=== PATIENT | female | born 1990 | race Caucasian/White ===

== ENCOUNTER 2017-03-29 11:11 | Inpatient (IN) | payer OTHER ==
[~2017-03-29] VITALS: Ht 167.6 cm; Wt 52.2 kg
[~2017-03-29 11:11] MED LIST: CHOL10002 PO; ESCI10TA PO; HYDR-3895 PO; LACT1CAP57 PO; NITR100C11 PO; PRAZ1CAP2 PO; TRAZ-144 PO
--- NOTE | 2017-03-29 12:45 | NUR ---
Intake Assessment; Patient is a 26 year old female AOX4, presented to [facility] to detoxify from ETOH. Patient was picked up from [facility]. She is the primary source of information. Patient is reporting anxiety, chills, fatigue, fine tremors of hands, difficulty concentrating. Admitting vital signs are as follows; BP 114/82, Respirations 18, HR 90, SPO2 96%, Temperature 96.8 , complaining of right hand pain rated 4/10 . Educated patient regarding unit protocols and policies, patient verbalized understanding. Patient was recently a patient at [facility] from November 11, 2016 and was discharged on November 17, 2016. Will continue with further assessment when patient is up on the unit.
[2017-03-29] MEDS ORDERED: HYDROXYZINE PAMOATE 25 MG CAPSULE PO PRN (13:15)
[2017-03-29] MEDS ORDERED: DICYCLOMINE HCL 20 MG TABLET PO PRN (13:15)
[2017-03-29] MEDS ORDERED: diphenhydrAMINE 50 MG CAPSULE PO PRN (13:15)
[2017-03-29] MEDS ORDERED: LORAZEPAM 1 MG TABLET PO PRN ×2 (13:15)
[2017-03-29] MEDS ORDERED: LOPERAMIDE HCL 2 MG CAPSULE PO PRN ×2 (13:15)
[2017-03-29] MEDS ORDERED: MAGNESIUM HYDROXIDE 30 ML LIQUID UDC PO PRN (13:15)
[2017-03-29] MEDS ORDERED: MAG HYDROX/AL HYDROX/SIMETH 30 ML LIQUID UDC PO PRN (13:15)
[2017-03-29] MEDS ORDERED: ONDANSETRON 4 MG/2 ML VIAL IM PRN (13:15)
[2017-03-29] MEDS ORDERED: THIAMINE HCL 200 MG/2 ML VIAL IM ONE (13:15)
[2017-03-29] MEDS ORDERED: ONDANSETRON ODT 4 MG TAB.RAPDIS SL PRN (13:15)
[2017-03-29] MEDS ORDERED: MIRALAX 17 GM POWD.PACK PO PRN (13:15)
[2017-03-29] MEDS ORDERED: LORAZEPAM 2 MG/1 ML VIAL IM PRN (13:15)
--- NOTE | 2017-03-29 13:33 | NUR ---
Admission note; Patient is a 26 year old female AOX4, presented to [facility] to detoxify from ETOH. Patient was picked up from [facility]. She is the primary source of information. Patient is reporting anxiety, chills, fatigue, fine tremors of hands, nausea, difficulty concentrating, unable to sit still with current CIWA score of 11. Admitting vital signs are as follows; BP 114/82, Respirations 18, HR 90, SPO2 96%, Temperature 96.8 , complaining of right hand pain rated 4/10 and muscle aches on right side of rib area .Educated patient regarding unit protocols and policies, patient verbalized understanding. Discussed substance use history. Patient was recently a patient at [facility] from October and was discharged on November 17, 2016 and was able to remain sober until she relapsed last week. She reports consuming 1 liter of Vodka/Tequila on a daily basis, last consumed 2 days ago, consumed 1 liter of Vodka. She reports self medicating with alcohol to manage her symptoms of anxiety. Patient first started drinking alcohol when at age of 11 and progressed to daily consumption when she turned 16 years old. She denies history of seizures. Patient struggled with multiple attempts to sobriety. Her longest period of sobriety was 2 years that ended in January 2015. Discussed medical and psych history. Patient reported history of anxiety, Chronic tobacco use, history of Cocaine use disorder. Patient currently lives with her family. Skin check done with no significant findings. Dr. Ponce notified. Patient oriented to unit by [employer]. Safety measures in place. Will continue to monitor patient. Addendum: 03/29/17 at 1552 by MARGARETH CORTEZ LVN Patient's PCP is Dr. Lewis.
[2017-03-29 13:39] LABS: *AMPHETAMINE, URINE NEGATIVE (NEGATIVE); *BARBITURATE, URINE NEGATIVE (NEGATIVE); *CANNABINOID, URINE NEGATIVE (NEGATIVE); *COCCAINE, URINE NEGATIVE (NEGATIVE); *OPIATE, URINE NEGATIVE (NEGATIVE); *PHENCYCLIDINE SCREEN,URINE NEGATIVE (NEGATIVE)
[2017-03-29 14:17] LABS: *URINE HCG, QUAL NEGATIVE (NEGATIVE)
--- NOTE | 2017-03-29 14:50 | NUR ---
PRN medication; Patient's current CIWA is 11 manifested by hand tremors, Nausea, chills, muscle aches, agitation and anxiety. PRN Zofran 4mg ODT given for nausea and Ativan 1mg PO given for CIWA of 11. Will closely monitor patient.
[2017-03-29 15:44] LABS: BILIRUBIN,TOTAL 0.7 mg/dL (0.2-1.0); CREATININE 0.6 mg/dL (0.6-1.3); MAGNESIUM 1.4 mg/dL (1.8-2.4); POTASSIUM 4.2 mmol/L (3.5-5.1); TOTAL PROTEIN, SERUM 6.8 g/dL (6.4-8.2)
--- NOTE | 2017-03-29 15:50 | NUR ---
Re-assessment; Patient's current CIWA score is 7, CIWA score and nausea has improved . Will closely monitor patient. Magnesium level reported to MD DORA ordered Magnesium Oxide 800mg order for supplement.
[2017-03-29 16:00] VITALS: BP 121/77
[2017-03-29] MEDS ORDERED: MAGNESIUM OXIDE 400 MG TABLET PO ONE (16:00)
[2017-03-29 16:12] LABS: THYROID STIMULATING HORMONE 1.524 mIU/mL (0.358-3.740)
[2017-03-29] MEDS: LORAZEPAM 1 MG TABLET PO SCH ×2 (16:17→20:20)
[2017-03-29 16:31] LABS: BASOPHILS % (AUTO) 0.4 % (0.0-2.0); EOSINOPHILS % (AUTO) 0.6 % (0.0-7.0); HEMATOCRIT 35.8 % (37-47); HEMOGLOBIN 12.2 G/DL (12.0-16.0); LYMPHOCYTES # (AUTO) 1.3 K/UL (0.8-4.8); LYMPHOCYTES % (AUTO) 17.6 % (20.5-51.5); MEAN CORPUSCULAR HEMOGLOBIN 30.3 UUG (27.0-31.0); MEAN CORPUSCULAR HGB CONC 34 g/dL (32.0-37.0); MEAN CORPUSCULAR VOLUME 89.2 FL (81.0-99.0); MONOCYTES # (AUTO) 0.6 K/UL (0.1-1.30); MONOCYTES % (AUTO) 7.8 % (0.0-11.0); NEUTROPHILS # (AUTO) 5.4 K/UL (1.8-8.9); NEUTROPHILS % (AUTO) 73.6 % (38.5-71.5); PLATELET COUNT (AUTO) 253 K/UL (150-450); RED BLOOD CELL COUNT(AUTO) 4.02 MIL/UL (4.2-5.4); WHITE BLOOD COUNT (AUTO) 7.3 K/UL (4.0-11.2)
--- NOTE | 2017-03-29 18:37 | NUR ---
End of shift note; Patient is AOX4. Patient was placed on Ativan taper, no adverse reactions noted. Patient is on fall and seizure precaution. Bed in lowest position, call light within reach. All safety measures secured. Met all needs.
[2017-03-29 20:00] VITALS: BP 124/92
--- NOTE | 2017-03-29 20:00 | NUR ---
Start of Shift Pt is a 26 year old female admitted for ETOH dependence, placed on 5 day Ativan taper. Pt reported consumption of 1 Litter of ETOH/daily for the past week. PMH: anxiety and hx of cocaine abuse. NKA, regular diet, fall/seizure precautions and full code. Upon assessment, pt presents with nausea, fatigue, tremors visible, reports chills, anxiety, hot/cold flushes with muscle aches, respirations even/unlabored, denies SOB/chest pain, denies SI/HI, bowel sounds active x4, abdomen soft. Safety measures in place, call light within reach, side rails up x2, bed locked and in low position. Will continue to monitor.
[2017-03-30] VITALS: BP 109/78
--- NOTE | 2017-03-30 | NUR ---
Vital Signs BP 109/78, Pulse 93, Respirations 16, SpO2 97%, temp 98.1 Pain 0/10 CIWA deferred d/t pt sleeping, to assess while pt is awake as ordered. Safety measures in place, will continue to monitor.
[2017-03-30 04:00] VITALS: BP 101/60
--- NOTE | 2017-03-30 04:00 | NUR ---
Vital Signs BP 101/60, Pulse 69, Respirations 14, SpO2 96%, temp 98.2 Pain 0/10 CIWA deferred d/t pt sleeping, to assess while pt is awake as ordered. Safety measures in place, will continue to monitor.
[2017-03-30 06:06] LABS: HEPATITIS B SURFACE AG Negative (Negative)
--- NOTE | 2017-03-30 07:00 | NUR ---
End of Shift Pt is a 26 year old female admitted for ETOH dependence, placed on 5 day Ativan taper. Pt reported consumption of 1 Litter of ETOH/daily for the past week. PMH: anxiety and hx of cocaine abuse. NKA, regular diet, fall/seizure precautions and full code. During shift, pt presented with nausea, fatigue, tremors visible, reports chills, anxiety, hot/cold flushes with muscle aches - scheduled taper medications administered during shift, CIWA 9. No PRN medications administered during shift. Pt slept all throughout shift, Pt slept for 10 hours, intake of 590 ml Po and voids x1. Safety measures in place, call light within reach, side rails up x2, bed locked and in low position. Endorsed to day shift.
--- NOTE | 2017-03-30 07:45 | NUR ---
START OF SHIFT Rcvd endorsement from ongoing nurse, client is in bed, she is a/o to name, place, time. She presents with depressed mood, flat affect. She reports not feeling well, body aches, upset stomach, no appetite, and restless legs. She denies any N/V/D. She denies any SI/HI. Client admired to [facility] on 03/29/17 for alcohol withdrawal, she is on second of 5 day Ativan taper to assist with withdrawal symptoms, tolerating well. She had an uneventful night, she slept 10 hrs. Last CIWA 9 @ 1999, taper medication given and noted effective. NKA, regular diet, full code. She is on fall/seizure precautions - denies hx of withdrawal-induced seizures. Call light within reach. Bed in lowest/locked position. Side rails x 2 up/padded. Will continue to monitor.
[2017-03-30] MEDS: THIAMINE HCL 100 MG TABLET PO SCH (08:54)
[2017-03-30] MEDS: MULTIVITAMINS,THERAPEUTIC TABLET PO SCH (08:54)
[2017-03-30] MEDS: FOLIC ACID 1 MG TABLET PO SCH (08:54)
[2017-03-30] MEDS: LORAZEPAM 1 MG TABLET PO SCH ×3 (08:54→20:22)
[2017-03-30 08:56] VITALS: BP 104/71
[2017-03-30] MEDS ORDERED: TUBERCULIN,PURIF.PROT.DERIV. 5 TU/0.1 ML TEST ID ONE (09:00)
[2017-03-30] MEDS: ACETAMINOPHEN 325 MG TABLET PO PRN (09:04)
--- NOTE | 2017-03-30 09:04 | NUR ---
PRN Tylenol 650mg Client reports pain on R lateral chest, tender to touch, no mass noted. She stated "It hurts when I breath." She does not remember if she had a fallen previous to admission. Tylenon 650mg PO administered. Call light within reach.
--- NOTE | 2017-03-30 09:15 | NUR ---
Client refused TB test Dr. Ponce notified and he ordered a chext x-ray "Medical Clearance for active TB. Client verbalized understanding.
--- NOTE | 2017-03-30 10:04 | NUR ---
Reassessment PRN Tylenol 650mg Client is in bed, sound asleep, easy to arouse. RR 16 even, non-labored. Call light within reach.
[2017-03-30 12:35] VITALS: BP 98/53
--- NOTE | 2017-03-30 14:15 | NUR ---
Chest X-ray impression: No evidence of acute cardiopulmonary disease. No evidence of active tuberculosis.
[2017-03-30 16:00] VITALS: BP 100/69
--- NOTE | 2017-03-30 19:10 | NUR ---
END OF SHIFT Endorsed client to incoming nurse, client is in room, she did not attend group therapy for skills to maintain sobriety, last CIWA 6, On Ativan taper for 5 days to manage withdrawal symptoms such chills/colds, irritability, anxiety, flushed face. Client denies any N/V/D or SI/HI. PRN Tylenol for R lateral chest pain, effective. Adequate intake 1540mL, she void x 2. NKA, regular diet, full code. She is on fall/seizure precautions - denies hx of withdrawal-induced seizures. Call light within reach. Bed in lowest/locked position. Side rails x 2 up/padded.
[2017-03-30 20:00] VITALS: BP 120/72
--- NOTE | 2017-03-30 20:00 | NUR ---
Start of Shift Pt is a 26 year old female admitted for ETOH dependence, placed on 5 day Ativan taper. Pt reported consumption of 1 Litter of ETOH/daily for the past week. PMH: anxiety and hx of cocaine abuse. NKA, regular diet, fall/seizure precautions and full code. Upon assessment, pt presents with anxiety, irritability, chills, restlessness, aches and chills throughout body. Pt reported she had pain in right lateral chest during day, however now is subsiding, rated 2/10. Pt reports, "the pain comes and goes". Respirations even/unlabored, denies SOB denies SI/HI, bowel sounds active x4, abdomen soft. Safety measures in place, call light within reach, side rails up x2, bed locked and in low position. Will continue to monitor.
[2017-03-30] MEDS: GABAPENTIN 300 MG CAPSULE PO SCH (20:22)
[2017-03-30] MEDS: LACTOBACILLUS RHAMNOSUS GG 1 EACH CAPSULE PO SCH (20:22)
[2017-03-30] MEDS ORDERED: NITROFURANTOIN/NITROFURAN MAC 100 MG CAPSULE PO SCH (21:00)
[2017-03-30] MEDS: TRAZODONE 50 MG TABLET PO PRN (22:42)
--- NOTE | 2017-03-30 22:42 | NUR ---
PRN Administration Pt requested aid to help her sleep - non-pharmacological methods ineffective. Trazodone 50mg PRN administered. Safety measures in place. Will continue to monitor.
--- NOTE | 2017-03-30 23:42 | NUR ---
PRN Reassessment Upon reassessment, pt is sleeping, respirations even/unlabored. no s/s of distress noted. Trazodone 50mg PRN effective. Safety measures in place, will continue to monitor.
[2017-03-31] VITALS: BP 110/73
--- NOTE | 2017-03-31 | NUR ---
Vital Signs BP 110/73, Pulse 82, respirations 16, SpO2 97%, temp 98, no pain 0/10 CIWA deferred d/t pt sleeping - to assess while pt is awake as ordered. Safety measures in place. Will continue to monitor.
[2017-03-31 04:00] VITALS: BP 104/60
--- NOTE | 2017-03-31 04:00 | NUR ---
Vital Signs BP 104/60, Pulse 67, respirations 16, SpO2 96%, temp 98.7, no pain 0/10 CIWA deferred d/t pt sleeping - to assess while pt is awake as ordered. Safety measures in place. Will continue to monitor.
--- NOTE | 2017-03-31 07:00 | NUR ---
End of Shift Pt is a 26 year old female admitted for ETOH dependence, placed on 5 day Ativan taper. Pt reported consumption of 1 Litter of ETOH/daily for the past week. PMH: anxiety and hx of cocaine abuse. NKA, regular diet, fall/seizure precautions and full code. During shift , pt presented with anxiety, irritability, chills, restlessness, aches and chills throughout body - scheduled taper medications administered, CIWA 8. Trazodone 50mg PRN administered for sleep, effective. Pt slept for 6 hours, intake of 455 ml PO and voids x1. Safety measures in place, call light within reach, side rails up x2, bed locked and in low position. Endorsed to day shift nurse.
--- NOTE | 2017-03-31 08:20 | NUR ---
START OF SHIFT Rcvd endorsement from ongoing nurse, client is in bed, alert and oriented to name, date and place. She presents with anxious mood, flat affect, flushed face, tremors felt, but not observed. She reports upset stomach and tightness around head. She denies any N/V/D. She denies any SI/HI. Encouraged client to increase fluid intake as tolerated to facilitate detox. Encouraged client to attend group therapy for skills on maintaining sobriety. PRN Trazodone 50mg for inability to sleep, she slept 6 hrs. Last CIWA 8 @ 2100, Ativan 2mg taper administered at that time. NKA, regular diet, full code. She is on fall/seizure precautions - client reports hx of withdrawal-induced seizures. Call light within reach. Bed in lowest/locked position. Side rails x 2 up/padded. Will continue to monitor.
[2017-03-31 08:25] VITALS: BP 107/61
[2017-03-31] MEDS: GABAPENTIN 300 MG CAPSULE PO SCH ×3 (09:43→20:21)
[2017-03-31] MEDS: FOLIC ACID 1 MG TABLET PO SCH (09:43)
[2017-03-31] MEDS: MULTIVITAMINS,THERAPEUTIC TABLET PO SCH (09:44)
[2017-03-31] MEDS: LORAZEPAM 1 MG TABLET PO SCH ×4 (09:44→20:21)
[2017-03-31] MEDS: LACTOBACILLUS RHAMNOSUS GG 1 EACH CAPSULE PO SCH ×2 (09:44→20:21)
[2017-03-31] MEDS: THIAMINE HCL 100 MG TABLET PO SCH (09:44)
[2017-03-31] MEDS: CHOLECALCIFEROL 1,000 UNIT TABLET PO SCH (09:44)
[2017-03-31] MEDS: IBUPROFEN 400 MG TABLET PO PRN (10:14)
--- NOTE | 2017-03-31 10:14 | NUR ---
PRN Motrin 400mg Client reports pain on R lateral chest, tender to touch, no mass noted. She stated "It hurts when I try to sit." Motrin 400mg PO administered. Call light within reach.
--- NOTE | 2017-03-31 11:14 | NUR ---
Reassessment PRN Motrin 400mg Client is in bed, sounds asleep, easy to arouse, RR 16 even, non-labored. Motrin 400mg effective. Call light within reach.
[2017-03-31 12:00] VITALS: BP 106/65
[2017-03-31] MEDS ORDERED: FUROSEMIDE 20 MG TABLET PO ONE (13:00)
[2017-03-31 16:00] VITALS: BP 110/71
--- NOTE | 2017-03-31 19:01 | NUR ---
END OF SHIFT Endorsed client to incoming nurse, client is in the hallway, talking to her twin sister, she did not attend group therapy for skills to maintain sobriety, last CIWA 5, On second of 5 day Ativan, no ASE noted, Taper medication to help manage withdrawal symptoms such chills/colds, irritability, anxiety, flushed face. Client denies any N/V/D or SI/HI. PRN Motrin for R lateral chest pain, effective. Adequate intake 1801mL, she void x 4. NKA, regular diet, full code. She is on fall/seizure precautions - reports hx of withdrawal-induced seizures. Call light within reach. Bed in lowest/locked position. Side rails x 2 up/padded.
[2017-03-31 20:00] VITALS: BP 117/78
--- NOTE | 2017-03-31 20:00 | NUR ---
1999 Patient received awake, alert and sitting up on her bed watching television and writing in her notebook. Patient responds to nurse's greeting with, " Hi, oh you remember me, huh?". Patient's color is pale pink and her skin is warm, dry and intact. Patient's overall appearance is slightly disheveled. Patient states that she has been attending [employer] groups and taking her regular diet 'okay' and taking fluids ad jakob, with no real gastric issues so far. Patient is oriented to person, place, day, date, time and her personal situation. Patient offers no requests or c/o any pain or discomforts at this time. Vital signs are: 97.4-62-16 117/78, O2 Sat 97%, CIWA 5. Patient moves all her extremities fully WNL. Patient was admitted on 03/29/17 for Alcohol withdrawal and she is presently on a 5-Day Ativan medication taper, which she has apparently been tolerating well so far. Patient is overall cooperative and verbally appropriate when interacting with nurse, for the most part, however she presents also emotionally and verbally needy and labile at the same time. Bed is locked and in lowest position, bed rails are up X 22 and call light within patient's easy reach.
[2017-03-31] MEDS: TRAZODONE 50 MG TABLET PO PRN (21:39)
--- NOTE | 2017-03-31 21:39 | NUR ---
PRN MEDICATION: Prn Trazadone 50 mg p.o. given per request for sleep medication.
--- NOTE | 2017-03-31 22:39 | NUR ---
REASSESSMENT PRN MEDICATION: Patient is still awake and visibly, verbally upset about her just delivered clean laundry. Patient is ventilating her feelings to [employer]amariaMormon.
[2017-03-31] MEDS: CLONIDINE HCL 0.1 MG TABLET PO PRN (22:54)
--- NOTE | 2017-03-31 22:54 | NUR ---
PRN MEDICATION: Prn Catapres 0.1 mg p.o. given and Prn Vistaril 25 mg p.o. given for agitation and severe anxiety. Patient is crying and shouting about her just delivered clean laundry by [employer]. Patient shouts, " Oh, these aren't enough of my clothes! Johan, the handler for me that my mother hired, is trying to sabotage me by making me not have enough clothes here and I'll have to stay long in a sober living place!" Patient given calm reassurances and encouraged to try to calm herself. Patient then state, through soft sobs, " Okay, I'll try".
--- NOTE | 2017-03-31 23:54 | NUR ---
REASSESSMENT PRN MEDICATIONS: Patient is lying in -like position, with eyes closed and respirations quiet, even, unlabored at 12.
[2017-04-01] VITALS: BP 110/71
--- NOTE | 2017-04-01 04:00 | NUR ---
Patient refused to be awakened for V/S to be done at this time.
--- NOTE | 2017-04-01 06:30 | NUR ---
0630 Patient slept a total of 8 hours and she had 2 voids and no stools. Total intake was 1,091 ml p.o. Prn medications given noted separately per floor protocol. V/SS afebrile, last CIWA at 000 was 7. Patient is presently resting comfortably with eyes closed and respirations even, unlabored at 12. Patient is in stable condition at this time.
--- NOTE | 2017-04-01 07:42 | NUR ---
BEGINNING OF SHIFT Patient endorsement report received from warehouse worker 2nd shift nurse, all pertinent information discussed. Patient is a 26 year old female admitted on 03/29/2017, with admitting Dx: ETOH dependence. Patient with ongoing 5 day Modified Ativan Taper as ordered, and is scheduled to begin day 4 of taper. Patient with last ciwa score of: 4, as per warehouse worker 2nd shift. Patient received PRN: Trazodone, Vistaril, and clonidine during warehouse worker 2nd shift, medications were effective, patient slept for 8 hours. Patient received in room, awake alert and oriented x4, educated regarding plan of care and medication regimen for the day with good verbal understanding. Safety measures in place. call light kept with in reach, will continue to monitor closely.
[2017-04-01 08:22] VITALS: BP 92/68
[2017-04-01 08:25] LABS: CREATININE 0.7 mg/dL (0.6-1.3); POTASSIUM 3.3 mmol/L (3.5-5.1)
[2017-04-01] MEDS: CHOLECALCIFEROL 1,000 UNIT TABLET PO SCH (09:18)
[2017-04-01] MEDS: FOLIC ACID 1 MG TABLET PO SCH (09:18)
[2017-04-01] MEDS: MULTIVITAMINS,THERAPEUTIC TABLET PO SCH (09:18)
[2017-04-01] MEDS: LACTOBACILLUS RHAMNOSUS GG 1 EACH CAPSULE PO SCH ×2 (09:18→21:30)
[2017-04-01] MEDS: GABAPENTIN 300 MG CAPSULE PO SCH ×2 (09:18→14:41)
[2017-04-01] MEDS: THIAMINE HCL 100 MG TABLET PO SCH (09:18)
[2017-04-01] MEDS: LORAZEPAM 1 MG TABLET PO SCH ×3 (09:18→21:30)
[2017-04-01] MEDS ORDERED: POTASSIUM CHLORIDE 20 MEQ TAB.PRT.SR PO ONE (10:00)
[2017-04-01 14:14] VITALS: BP 98/62
[2017-04-01 17:34] VITALS: BP 92/65
--- NOTE | 2017-04-01 19:15 | NUR ---
BEGINNING OF SHIFT Patient is a 26 year old female admitted on 03/29/2017, with admitting Dx: ETOH dependence. Patient with ongoing 5 day Modified Ativan Taper as ordered. Patient with last ciwa score of: 6 at 16:00. Patient received in room, awake alert and oriented x4, educated regarding plan of care and medication regimen for the day with good verbal understanding. All safety measures in the place by hospital policy: Call light within reach; bed locked and in the lowest position; padded rails up x 2. Will continue to monitor and offer help.
--- NOTE | 2017-04-01 19:15 | NUR ---
END OF SHIFT Patient alert and oriented x4, vital signs were stable during shift. patient compliant with Therapeutic plan of care. 0900 assessment patient presented with: tremors that can be felt but not seen, barely sweating, anxiety, mild agitation and mild head fullness with ciwa score of: 8; 1300 assessment patient presented with: tremors that can be felt but not seen, barely sweating, anxiety, mild agitation, mild head fullness with ciwa score of: 8. 1700 assessment patient presented with: tremors that can be felt but not seen, barely sweating, mild anxiety, mild agitation and mild head fullness with ciwa score of: 6. Potassium of 3.3 replaced during shift as ordered. Patient received PRN: miralax during shift for constipation, endorsed to jewel bearing grinder nurse, to monitor effectiveness. Patient encouraged to attend group therapies/sessions to learn new coping skills to prevent relapse. patient denies any SI/HI. safety measures in place. call light kept with in reach. patient endorsed to jewel bearing grinder nurse, all pertinent information discussed. will continue to monitor closely.
[2017-04-01 20:00] VITALS: BP 104/68
[2017-04-01] MEDS: GABAPENTIN 400 MG CAPSULE PO SCH (21:30)
[2017-04-01] MEDS: TRAZODONE 50 MG TABLET PO PRN (22:11)
[2017-04-01] MEDS: ACETAMINOPHEN 325 MG TABLET PO PRN (22:12)
--- NOTE | 2017-04-01 23:00 | NUR ---
PRN TYLENOL, TRAZADONE Pt. complains of sleeplessness and bodyache 04/01. PRN TYLENOL, TRAZADONE given as ordered. All safety measures in the place by hospital policy: Call light within reach; bed locked and in the lowest position; padded rails up x 2. Will continue to monitor and offer help.
--- NOTE | 2017-04-02 | NUR ---
REASSESSMENT TYLENOL, TRAZADONE Pt. is sleeping, RR=16, unlabored and even. . All safety measures in the place by hospital policy: Call light within reach; bed locked and in the lowest position; padded rails up x 2. Will continue to monitor and offer help.
--- NOTE | 2017-04-02 06:46 | NUR ---
END OF SHIFT NOTE : Patient is a 26 year old female admitted on 03/29/2017, with admitting Dx: ETOH dependence. Patient with ongoing 5 day Modified Ativan Taper as ordered. Pt remains compliant with the treatment plan. PRN TYLENOL, TRAZODONE were given during my shift. V/S remain WNL. RR=16, even and unlabored, lungs clear upon auscultation, abdomen soft and non- distended. Pt denies nausea, vomiting and diarrhea. LAST CIWA=3 at 0400 , INTAKE=1,581 ml, voided x 4, slept 7 hours. All safety measures in the place by hospital policy: Call light within reach; bed locked and in the lowest position; padded rails up x 2. Will continue to monitor and offer help.
[2017-04-02 08:00] VITALS: BP 91/58
--- NOTE | 2017-04-02 08:00 | NUR ---
START OF SHIFT Pt 26 y/o female admitted for etoh withdrawal. Pt received in room awake on bed. Pt alert and oriented to name, place, and time. Perrla. Skin warm and slightly moist to touch. Respirations even and unlabored. It was reported that pt slept for 7 hours last night. Bed on lowest position with side rails x 2 up for safety. Call light within reach. No distress noted at this time.
[2017-04-02] MEDS: LORAZEPAM 1 MG TABLET PO SCH ×2 (08:37→21:01)
[2017-04-02] MEDS: ASPIRIN/ACETAMINOPHEN/CAFFEINE TABLET PO PRN (08:37)
[2017-04-02] MEDS: THIAMINE HCL 100 MG TABLET PO SCH (08:37)
[2017-04-02] MEDS: FOLIC ACID 1 MG TABLET PO SCH (08:37)
[2017-04-02] MEDS: GABAPENTIN 400 MG CAPSULE PO SCH ×3 (08:37→21:01)
[2017-04-02] MEDS: CHOLECALCIFEROL 1,000 UNIT TABLET PO SCH (08:37)
[2017-04-02] MEDS: LACTOBACILLUS RHAMNOSUS GG 1 EACH CAPSULE PO SCH ×2 (08:37→21:01)
[2017-04-02] MEDS: MULTIVITAMINS,THERAPEUTIC TABLET PO SCH (08:37)
[2017-04-02 12:00] VITALS: BP 114/57
[2017-04-02] MEDS ORDERED: SUMATRIPTAN SUCCINATE 50 MG TABLET PO ONE (12:45)
[2017-04-02 16:00] VITALS: BP 118/79
--- NOTE | 2017-04-02 16:00 | NUR ---
prn Pt with c/o heart burn. Maloox po prn per MD order given and tolerated well.
--- NOTE | 2017-04-02 16:19 | NUR ---
NSG ENTRY Pt with c/o aches and sharp pain around the right breast area. Pt states she feels discomfort with ROM. Dr. Gonzalez made aware with new orders to monitor pt VS and EKG, noted and carried out.
[2017-04-02] MEDS: IBUPROFEN 400 MG TABLET PO PRN (16:25)
--- NOTE | 2017-04-02 16:25 | NUR ---
PRN Pt with c/o discomfort around the right breast area. Motrin po prn per MD order given and tolerated well.
[2017-04-02 16:30] VITALS: BP 112/79
--- NOTE | 2017-04-02 17:00 | NUR ---
POLLY ORTEGA Pt observed walking around unit with sister.
--- NOTE | 2017-04-02 17:25 | NUR ---
PRN EVAL Pt observed walking around unit with sibling. Pt states pain 0/10.
--- NOTE | 2017-04-02 18:00 | NUR ---
EKG EKG done and MD aware.
--- NOTE | 2017-04-02 18:40 | NUR ---
END OF SHIFT Pt 26y/o female admitted for etoh withdrawal. Pt alert and oriented to name, place, and time. Perrla. Skin warm and dry to touch.. Respirations even and unlabored. Pt observed mostly in room , but at times, walking around the hallway. Pt was seen by Dr. Gonzalez today. Pt medication compliant and tolerated well. No ASE noted. Bed on lowest position with side rails x2 up for safety. Call light within reach. No distress noted at this time.
--- NOTE | 2017-04-02 19:15 | NUR ---
START OF SHIFT : Patient is a 26 year old female admitted on 03/29/2017, with admitting Dx: ETOH dependence. Patient with ongoing 5 day Modified Ativan Taper as ordered. Patient received in room, awake alert and oriented x4, educated regarding plan of care and medication regimen for the day with good verbal understanding. All safety measures in the place by hospital policy: Call light within reach; bed locked and in the lowest position; padded rails up x 2. Will continue to monitor and offer help.
[2017-04-02 20:00] VITALS: BP 126/76
--- NOTE | 2017-04-02 21:00 | NUR ---
PRN TYLENOL, TRAZADONE Pt. complains of sleeplessness. PRN TRAZADONE given as ordered. All safety measures in the place by hospital policy: Call light within reach; bed locked and in the lowest position; padded rails up x 2. Will continue to monitor and offer help.
[2017-04-02] MEDS: TRAZODONE 50 MG TABLET PO PRN (21:01)
--- NOTE | 2017-04-02 21:55 | NUR ---
REASSESSMENT TRAZAMARIMARE Pt. is sleeping, RR=16, unlabored and even. . All safety measures in the place by hospital policy: Call light within reach; bed locked and in the lowest position; padded rails up x 2. Will continue to monitor and offer help.
--- NOTE | 2017-04-02 23:00 | NUR ---
PRN CLONIDINE Pt. complains of flashes. PRN CLONIDINE given as ordered. Safety measures in place : bed on lowest position with side rails x2 up for safety, call light within reach. Will continue to monitor closely and offer help.
[2017-04-02] MEDS: CLONIDINE HCL 0.1 MG TABLET PO PRN (23:34)
--- NOTE | 2017-04-03 | NUR ---
REASSESSMENT CLONIDINE Pt. feels better, is ready to sleep. Safety measures in place : bed on lowest position with side rails x2 up for safety, call light within reach. Will continue to monitor closely and offer help.
--- NOTE | 2017-04-03 05:00 | NUR ---
PRN EXCEDRIN Pt. complains of headache 05/01. PRN EXCEDRIN given as ordered. Safety measures in place : bed on lowest position with side rails x2 up for safety, call light within reach. Will continue to monitor closely and offer help.
[2017-04-03] MEDS: ASPIRIN/ACETAMINOPHEN/CAFFEINE TABLET PO PRN (05:41)
--- NOTE | 2017-04-03 06:00 | NUR ---
REASSESSMENT EXCEDRIN Pt. feels better, headache level decreased to 2/10. Safety measures in place : bed on lowest position with side rails x2 up for safety, call light within reach. Will continue to monitor closely and offer help.
--- NOTE | 2017-04-03 06:58 | NUR ---
END OF SHIFT : Patient is a 26 year old female admitted on 03/29/2017, with admitting Dx: ETOH dependence. Patient with ongoing 5 day Modified Ativan Taper as ordered. Patient received in room, awake alert and oriented x4, educated regarding plan of care and medication regimen for the day with good verbal understanding. Pt remains compliant with the treatment plan. PRN Trazodone, Clonidine, Excedrin given during my shift. V/S remain WNL. RR=16, even and unlabored, lungs clear upon auscultation, abdomen soft and non- distended. Pt denies nausea, vomiting and diarrhea. LAST CIWA= 3 at 0400 , INTAKE=1,895 ml, voided x 2, slept 6 hours. All safety measures in the place by hospital policy: Call light within reach; bed locked and in the lowest position; padded rails up x 2. Will continue to monitor and offer help.
--- NOTE | 2017-04-03 07:35 | NUR ---
START OF SHIFT Received report from claim inspector nurse. 26 year old female patient admitted on 03/29/17 for ETOH dependence. Pt has been placed on a 5 day Ativan taper and is tolerating well. Pt has history of anxiety and insomnia. Denies allergies, regular diet and full code. Pt has history of withdrawal induced seizures. Remains seizure free throughout hospitalization. Most recent CIWA is 3 at 0000. PRN Trazodone, Clonidine, Excedrin administered as ordered. Pt slept for 6 hours. Remains safe, ambulates with steady gait, V/S WNL. All needs met, safety precautions are in place, will continue to monitor.
[2017-04-03 08:04] VITALS: BP 99/65
[2017-04-03] MEDS: GABAPENTIN 400 MG CAPSULE PO SCH ×3 (09:00→21:00)
--- NOTE | 2017-04-03 09:00 | NUR ---
REFUSAL OF GABAPENTIN Pt is refusing ordered dose of Gabapentin stating "it gives me a headache and makes me feel worse, I do not want to take it." Pt education provided.
[2017-04-03] MEDS: MULTIVITAMINS,THERAPEUTIC TABLET PO SCH (09:08)
[2017-04-03] MEDS: THIAMINE HCL 100 MG TABLET PO SCH (09:09)
[2017-04-03] MEDS: FOLIC ACID 1 MG TABLET PO SCH (09:09)
[2017-04-03] MEDS: CHOLECALCIFEROL 1,000 UNIT TABLET PO SCH (09:09)
[2017-04-03] MEDS: LACTOBACILLUS RHAMNOSUS GG 1 EACH CAPSULE PO SCH ×2 (09:09→21:09)
[2017-04-03] MEDS ORDERED: TRAZODONE 50 MG TABLET PO PRN (10:45)
[2017-04-03] MEDS ORDERED: CALCIUM CARBONATE 500 MG TAB.CHEW PO PRN (12:30)
[2017-04-03 12:51] VITALS: BP 100/64
--- NOTE | 2017-04-03 15:00 | NUR ---
REFUSAL OF GABAPENTIN Pt is refusing ordered dose of Gabapentin stating "I feel better when I do not take it." Education provided.
[2017-04-03 17:47] VITALS: BP 110/75
[2017-04-03 18:48] LABS: *AMPHETAMINE, URINE NEGATIVE (NEGATIVE); *BARBITURATE, URINE NEGATIVE (NEGATIVE); *CANNABINOID, URINE NEGATIVE (NEGATIVE); *COCCAINE, URINE NEGATIVE (NEGATIVE); *OPIATE, URINE NEGATIVE (NEGATIVE); *PHENCYCLIDINE SCREEN,URINE NEGATIVE (NEGATIVE)
--- NOTE | 2017-04-03 18:59 | NUR ---
END OF SHIFT Pt has completed 5 day Ativan taper and is medically cleared to be discharged tomorrow. Pt does not present with acute s/s of withdrawal. Pt encouraged to verbalize feelings and remains cooperative with nurse, staff and peers. No PRN medications needed or administered throughout shift. Pt refuses ordered doses of Gabapentin, MD is aware. Vital signs remain stable. Pt has adequate caloric intake. Most recent CIWA is 3. Pt remains safe, safety precautions are in place, night court magistrate nurse to continue monitoring.
[2017-04-03] MEDS ORDERED: HYDR-3895 PO (19:15)
[2017-04-03] MEDS ORDERED: TRAZ-144 PO (19:15)
[2017-04-03] MEDS ORDERED: Aspirin/Acetaminophen/Caffeine PO (19:15)
--- NOTE | 2017-04-03 19:30 | NUR ---
START OF SHIFT Pt is a Patient is a 26 year old female patient admitted on 03/29/17 for ETOH dependence. Pt has been placed on a 5 day Ativan taper and is tolerating well. Pt has history of anxiety and insomnia. NKA, on regular diet and full code. Pt has history of withdrawal induced seizures. Remains seizure free throughout hospitalization. Last CIWA is 3. V/S WNL. All needs met, safety precautions are in place. Pt has completed 5 day Ativan taper and is medically cleared to be discharged tomorrow.Will continue to monitor.
[2017-04-03 20:00] VITALS: BP 117/69
--- NOTE | 2017-04-03 21:00 | NUR ---
PT REFUSED GABAPENTIN.SAID "IT GIVES ME A HEADACHE".
--- NOTE | 2017-04-03 22:50 | NUR ---
PRN MED PRN TRAZODONE GIVEN ORDERED FOR C/O INSOMNIA PER PT REQUEST.WILL MONITOR.
--- NOTE | 2017-04-03 23:50 | NUR ---
PRN EFFECTIVE.PT IS RESTING IN BED WITH EYES CLOSED.NO S/S OF DISTRESS NOTED.WILL MONITOR.
--- NOTE | 2017-04-04 | NUR ---
CIWA DEFERRED AND VS REFUSED. PT IS ASLEEP. BED LOCKED AND IN LOWEST POSITION,SIDE RAILS UP X 2. CALL WHITE IN REACH.WILL MONITOR.
--- NOTE | 2017-04-04 04:00 | NUR ---
CIWA DEFERRED AND VS REFUSED. PT REMAINS ASLEEP. BED LOCKED AND IN LOWEST POSITION,SIDE RAILS UP X 2. CALL WHITE IN REACH.WILL MONITOR.
--- NOTE | 2017-04-04 06:44 | NUR ---
END OF SHIFT Pt is a Patient is a 26 year old female patient admitted on 03/29/17 for ETOH dependence. Pt has been placed on a 5 day Ativan taper and is tolerating well. Pt has history of anxiety and insomnia. NKA, on regular diet and full code. Pt has history of withdrawal induced seizures. Remains seizure free throughout hospitalization. Last CIWA is 2.PRN Trazodone given last night with good effect.Pt slept 7 hrs; fluid intake 480 mls,voided x 1. All needs met, safety precautions are in place. Pt has completed 5 day Ativan taper and is medically cleared to be discharged today. Will continue to monitor.
--- NOTE | 2017-04-04 07:20 | NUR ---
Start of shift note SBAR report rcv'd. Pt was admitted for ETOH dependence. Pt has a PMHx of alcoholic hepatitis, anxiety, withdrawal induced seizure and insomnia. Pt has completed a 5 day ativan taper without any ASE. Pt states that she feels ready for discharge. Pt has no complaints at this time. Will continue to monitor pt. Pt is scheduled to discharge today.
[2017-04-04 08:00] VITALS: BP 112/70
[2017-04-04] MEDS: CHOLECALCIFEROL 1,000 UNIT TABLET PO SCH (08:22)
[2017-04-04] MEDS: LACTOBACILLUS RHAMNOSUS GG 1 EACH CAPSULE PO SCH (08:22)
[2017-04-04] MEDS: FOLIC ACID 1 MG TABLET PO SCH (08:22)
[2017-04-04] MEDS: MULTIVITAMINS,THERAPEUTIC TABLET PO SCH (08:22)
[2017-04-04] MEDS: GABAPENTIN 400 MG CAPSULE PO SCH (08:22)
[2017-04-04] MEDS: ASPIRIN/ACETAMINOPHEN/CAFFEINE TABLET PO PRN (08:23)
[2017-04-04] MEDS: THIAMINE HCL 100 MG TABLET PO SCH (08:23)
--- NOTE | 2017-04-04 08:30 | NUR ---
PRN administration Pt c/o headache 01/30, administered excerdrin per MD order. Will continue to monitor pt.
--- NOTE | 2017-04-04 09:30 | NUR ---
Reassessment Pt states "my pain is better, but I still have some pressure, I don't want any further medications". Encouraged pt to drink adequate fluids and eat a full meal. Pt verbalized her understanding.
--- NOTE | 2017-04-04 10:17 | NUR ---
Discharge note Pt was admitted for ETOH dependence. Pt has a CIWA of 1 d/t mild anxiety r/t discharge. Pt VS are WNL, pt has no further complaints, LBM 04/02/17, pt states that she plans on taking OTC medication if she does not have BM and will follow up with her MD, pt states that she is comfortable at this time and is not concerned, pt is able to pass gas and has no abdominal discomfort. Pt denies SI/HI. Pt states that she feels ready for discharge. All needs addressed at this time. Discharge packet, prescriptions and all belongings returned to pt. Pt ID band removed, pt ambulated off of unit with LEARNING DISABILITIES SPECIALIST, left facility via private transport for home.
== END 2017-04-04 10:17 | disposition home or self-care (01) | DRG 895 ==
LOC: SRC 12:34
PROVIDERS: ADMIT Internal Medicine; ATTEND Internal Medicine
PROC: HZ2ZZZZ Detoxification Services for Substance Abuse Treatment (ICD-10-PCS; principal; 2017-03-29)
PROC: HZ31ZZZ Individual Counseling for Substance Abuse Treatment, Behavioral (ICD-10-PCS; 2017-04-01)
DX: F10.230 Alcohol dependence with withdrawal, uncomplicated (principal); F33.1 Major depressive disorder, recurrent, moderate; K70.10 Alcoholic hepatitis without ascites; Y90.9 Presence of alcohol in blood, level not specified; F17.210 Nicotine dependence, cigarettes, uncomplicated; D64.9 Anemia, unspecified; E83.42 Hypomagnesemia; E87.6 Hypokalemia; G43.009 Migraine without aura, not intractable, without status migrainosus; F14.21 Cocaine dependence, in remission; F41.0 Panic disorder [episodic paroxysmal anxiety]
CPT/HCPCS: 36415; 71010; 80307; 83690; 83735; 84100; 84443; 84703; 85025; 86580; 86592; 86705; 86803; 87340; 87806; 93005; G0480; Q0162

== ENCOUNTER 2017-04-23 21:32 | Inpatient (IN) | payer OTHER ==
[~2017-04-23] VITALS: Ht 167.6 cm; Wt 51.3 kg
[~2017-04-23 21:32] MED LIST changes: +Aspirin/Acetaminophen/Caffeine PO; -ESCI10TA PO; -NITR100C11 PO; -PRAZ1CAP2 PO
--- NOTE | 2017-04-24 00:13 | NUR ---
PREADMISSION NOTE: 26 year old, extemely inebriated-looking, well-nourished, caucasion female met in [facility], while she is sitting in chair. Patient unable to answer to her name, unable to focus her eyes for direct eye contact with nurse and unable to raise up her head for any significant period of time, while nurse speaks to her. Patient does not answer any questions and her face and eye sclera extremely reddened. Noticeable, large amounts of dry and drying vomitus noted on patient's shirt and pants, and very strong odor of alcohol noted around patient. When patient asked about her allergy history, patient states, " Me, me", with no eye contact with nurse. Vital signs are: 98.3-84-16 110/69, Unable to do admission CIWA due to patient's condition. Charge nurseMerrill notified of patient's condition for further patient evaluation.
--- NOTE | 2017-04-24 00:30 | NUR ---
Administration Communication Note: Pt noted to be highly intoxicated. Pt refuses to answer questions with any coherence. Pt is also unable to sign consents for admission. Administration made aware. Pt set to be transferred to ER for evaluation per unit protocol due to intoxication. ER MD stated that pt is unable to be admitted due to MD's assessment. ER MD saw the pt walking with steady gait when pt was walking in the ER earlier. Per ER MD, pt was not intoxicated. Director Of Video Analytics made aware and awaiting unit decision. DON made aware of situation and deferred decisions to [facility] Hat Designer. Hat Designer made aware with approval to admit client to [facility]. Pt able to sign consents for admission after multiple redirection.
--- NOTE | 2017-04-24 01:20 | NUR ---
ADMISSION NOTE: Patient brought to [facility] in wheelchair by ENGINEERING WRITER, after consults by Charge nurse, Merrill, with Yeny MINAYA ER MD, Dr. Leigh and [facility] Hand Cigar Making Supervisor, Dr. Gonzalez. Patient's condition unchanged from preadmission status ( please see preadmission note). V/S are 98.4-96-14 114/71, unable to assess CIWA scale due to patient's present inebriated state. Patient taken into shower by ENGINEERING WRITER, who stayed with patient and majorly assisted her. It should be noted here that, shortly before patient came to [facility], she urinated on herself in Intake chair, per Intake staff, Montrell's report to nurse. Patient then assisted to her room # 321, via wheelchair from shower, and she was put into her bed. Patient brought no medications with her to [facility]. Patient remains unable to participate in her admission process at this time. 1 to 1 ENGINEERING WRITER staff at patient's bedside for patient safety. Bed is locked and in lowest position, bed rails are up X 2 and call light within patient's easy reach.
[2017-04-24 01:50] LABS: *URINE HCG, QUAL NEGATIVE (NEGATIVE)
[2017-04-24 01:56] LABS: *AMPHETAMINE, URINE NEGATIVE (NEGATIVE); *BARBITURATE, URINE NEGATIVE (NEGATIVE); *CANNABINOID, URINE NEGATIVE (NEGATIVE); *COCCAINE, URINE POSITIVE (NEGATIVE); *OPIATE, URINE NEGATIVE (NEGATIVE); *PHENCYCLIDINE SCREEN,URINE NEGATIVE (NEGATIVE)
[2017-04-24] MEDS ORDERED: HYDROXYZINE PAMOATE 25 MG CAPSULE PO PRN (02:45)
[2017-04-24] MEDS ORDERED: MAGNESIUM HYDROXIDE 30 ML LIQUID UDC PO PRN (02:45)
[2017-04-24] MEDS ORDERED: LORAZEPAM 1 MG TABLET PO PRN ×4 (02:45→19:15)
[2017-04-24] MEDS ORDERED: ONDANSETRON ODT 4 MG TAB.RAPDIS SL PRN (02:45)
[2017-04-24] MEDS ORDERED: ACETAMINOPHEN 325 MG TABLET PO PRN (02:45)
[2017-04-24] MEDS ORDERED: THIAMINE HCL 200 MG/2 ML VIAL IM ONE ×2 (02:45→09:00)
[2017-04-24] MEDS ORDERED: LORAZEPAM 2 MG/1 ML VIAL IM PRN (02:45)
[2017-04-24] MEDS ORDERED: IBUPROFEN 400 MG TABLET PO PRN (02:45)
[2017-04-24] MEDS ORDERED: DICYCLOMINE HCL 20 MG TABLET PO PRN (02:45)
[2017-04-24] MEDS ORDERED: MAG HYDROX/AL HYDROX/SIMETH 30 ML LIQUID UDC PO PRN (02:45)
[2017-04-24] MEDS ORDERED: CLONIDINE HCL 0.1 MG TABLET PO PRN (02:45)
[2017-04-24] MEDS ORDERED: MIRALAX 17 GM POWD.PACK PO PRN (02:45)
[2017-04-24] MEDS ORDERED: ONDANSETRON 4 MG/2 ML VIAL IM PRN (02:45)
[2017-04-24] MEDS ORDERED: LOPERAMIDE HCL 2 MG CAPSULE PO PRN ×2 (02:45)
[2017-04-24 04:00] VITALS: BP_SYST 100; BP_SYST 95; BP_DIAS 49; BP_DIAS 63
--- NOTE | 2017-04-24 04:00 | NUR ---
V/S are: 98.6-92-14 95/49. Unable to assess CIWA. Patient able to respond to her name and touch, by briefly, opening her eyes, however, she refused to acknowledge nurse 's presence, or answer any assess or personal questions asked of her. 1 to 1 SHEET METAL SUPERVISOR staff continues at bedside for patient safety.
--- NOTE | 2017-04-24 06:30 | NUR ---
0630 Patient slept a total of 5 hours and she had 3 voids and 1 small stools at bathroom, with minimum STRAINER TENDER assist. Total p.o. intake was 1,050 ml. No prn medications given. Patient is presently sleeping soundly with eyes closed and respirations quiet, even, unlabored at 12. 1 to 1 STRAINER TENDER staff continues at bedside for patient safety. Complete patient report endorsed to day shift nurse.
--- NOTE | 2017-04-24 07:05 | NUR ---
Unable to assess CIWA due to patient's refusal to be awakened and answer any questions at this time.
[2017-04-24 08:00] VITALS: BP 102/58
--- NOTE | 2017-04-24 08:00 | NUR ---
ADMISSION NOTE Allergy- NKA/NKFA Status-Full code Height- 5'6 Weight-113 lb PCP- Dr. Hassan Vital Signs- B/P-102/58,HR-80, R-16, TEMP-98.2, SPO2-99%, Pain 3/10 (body aches) CIWA-4 Patient is a 26 year old female admitted to [facility] to detox center for ETOH dependence under the care of Dr. Gonzalez. Urine provided by patient for urine screen and thorough body and belonging check done by TELEGRAPHIC TYPEWRITER INSTALLER. Patient appears anxious and flushed. Patient is cooperative during nursing assessment. Upon admission Patient is noted to be flat, intoxicated, and sleepy but cooperative with admission. Patient reported Anxiety, Agitation, body aches and presents with tremors. Patient denies chest pain or SOB. Lung sounds clear with no cough noted. Bowel sounds present in all 4 quadrants. BUE and BLE noted WNL with no edema present. Patient noted with unsteady gait, pt has been placed on 1:1 for safety. Pt reported PMH of Anxiety, No history of seizures. Pt refused PNA vaccine. Pt did not bring any medications from home. Patient denies SI/HI ideations. Pt AOx4. Pt avoids eye contact. Patient reported 6th admission into [facility]. Patient reports of 2 years of sobriety back in 2014. ETOH- Pt reported drinking since age of 11 on and off. Vodka- 750ml daily for past 5 days PO, Last drink was on 04/23/17 750ml Po prior to admission. All safety measures in place, Call light within reach. Will cont to monitor.
[2017-04-24 08:46] LABS: CREATININE 0.7 mg/dL (0.6-1.3); MAGNESIUM 1.6 mg/dL (1.8-2.4); POTASSIUM 3.6 mmol/L (3.5-5.1); TOTAL PROTEIN, SERUM 6.2 g/dL (6.4-8.2)
[2017-04-24 08:51] LABS: THYROID STIMULATING HORMONE 1.239 mIU/mL (0.358-3.740)
[2017-04-24] MEDS ORDERED: THIAMINE HCL 100 MG TABLET PO SCH (09:00)
--- NOTE | 2017-04-24 09:01 | NUR ---
REFUSED THIAMINE IM Pt refused Thiamine IM injection, offered x3 risk and benefits explained, pt still refused. notified.
[2017-04-24 09:02] LABS: BILIRUBIN,TOTAL 0.1 mg/dL (0.2-1.0)
[2017-04-24] MEDS: FOLIC ACID 1 MG TABLET PO SCH (09:14)
[2017-04-24] MEDS: MULTIVITAMINS,THERAPEUTIC TABLET PO SCH (09:14)
[2017-04-24 09:17] LABS: BASOPHILS % (AUTO) 0.5 % (0.0-2.0); EOSINOPHILS # (AUTO) 0.1 K/uL (0.0-0.7); EOSINOPHILS % (AUTO) 1.4 % (0.0-7.0); HEMOGLOBIN 11.6 G/DL (12.0-16.0); LYMPHOCYTES # (AUTO) 3.8 K/UL (0.8-4.8); LYMPHOCYTES % (AUTO) 50.3 % (20.5-51.5); MEAN CORPUSCULAR HEMOGLOBIN 29.7 UUG (27.0-31.0); MEAN CORPUSCULAR HGB CONC 33 g/dL (32.0-37.0); MEAN CORPUSCULAR VOLUME 89.4 FL (81.0-99.0); MONOCYTES # (AUTO) 0.5 K/UL (0.1-1.30); NEUTROPHILS % (AUTO) 40.8 % (38.5-71.5); PLATELET COUNT (AUTO) 228 K/UL (150-450); RED BLOOD CELL COUNT(AUTO) 3.91 MIL/UL (4.2-5.4); WHITE BLOOD COUNT (AUTO) 7.4 K/UL (4.0-11.2)
[2017-04-24] MEDS ORDERED: MAGNESIUM OXIDE 400 MG TABLET PO ONE (09:45)
[2017-04-24] MEDS ORDERED: ASPIRIN/ACETAMINOPHEN/CAFFEINE TABLET PO PRN (09:45)
--- NOTE | 2017-04-24 10:39 | NUR ---
MAGNESIUM REPLACED Pt noted with Low Magnesium level 1.6L, new order to replaced with 800mg Mag-Ox. Administered medication as ordered. All safety measures in place, Call light within reach. Will cont to monitor.
--- NOTE | 2017-04-24 10:51 | NUR ---
PRN ATIVAN Pt c/o of anxiety, agitation, sweats, tremors, light headed. CIWA score noted-9. Administered PRN Ativan 1 mg Po as ordered for CIWA score. Pt cont with 1:1, All safety measures in place, Will cont to monitor and reassess.
--- NOTE | 2017-04-24 11:50 | NUR ---
ATIVAN REASSESSMENT Pt reported medication effective CIWA score noted 5. Will cont to monitor.
[2017-04-24 12:00] VITALS: BP 107/69
--- NOTE | 2017-04-24 12:00 | NUR ---
1:1 D/C Pt noted with steady gait, Pt also reported she can walk safely. 1:1 discontinued. Will cont to monitor.
[2017-04-24 16:00] VITALS: BP 118/74
--- NOTE | 2017-04-24 19:12 | NUR ---
END OF SHIFT NOTE Endorsed Pt to bioinformatics programmer nurse. Patient is AOX4. Patient is a 26 year old female admitted for ETOH dependence. Pt currently not on any taper but PRN available for s/s of withdrawal. Pt remains compliant with the treatment plan. Patient encouraged adequate PO fluid intake as tolerated. During shift patient presented with anxiety, and sweating, agitation. Pt given PRN dose of Ativan 1mg effective. Pt did not attend any groups or activities and rested in her room most of the day, Patient encouraged to attend group therapies/sessions to learn new coping skills to prevent relapse, patient denies SI/HI. Safety measures in place. Call light kept within reach. Patient endorsed to bioinformatics programmer nurse in stable condition.
--- NOTE | 2017-04-24 19:15 | NUR ---
START of SHIFT NOTE : Patient is a 26 year old female admitted for ETOH dependence. Patient is AOX4. Pt currently not on any taper but PRN available for s/s of withdrawal. Pt remains compliant with the treatment plan. Patient encouraged adequate PO fluid intake as tolerated. Patient is presenting with anxiety. Pt did not attend any groups or activities and rested in her room most of the day, Patient encouraged to attend group therapies/sessions to learn new coping skills to prevent relapse, patient denies SI/HI. Safety measures in place : bed on lowest position with side rails x2 up for safety, call light within reach. Will continue to monitor closely and offer help
[2017-04-24 20:00] VITALS: BP_SYST 114
[2017-04-24] MEDS ORDERED: LORAZEPAM 1 MG TABLET PO ONE (21:00)
[2017-04-24] MEDS: THIAMINE HCL 100 MG TABLET PO SCH (21:14)
[2017-04-25 06:09] LABS: HEPATITIS B SURFACE AG Negative (Negative)
--- NOTE | 2017-04-25 06:39 | NUR ---
END of SHIFT NOTE : Patient is a 26 year old female admitted for ETOH dependence. Patient is AOX4. Pt currently not on any taper but PRN available for s/s of withdrawal. Pt remains compliant with the treatment plan. Patient encouraged adequate PO fluid intake as tolerated. Patient is presenting with anxiety. Pt did not attend any groups or activities and rested in her room most of the day, Patient encouraged to attend group therapies/sessions to learn new coping skills to prevent relapse, patient denies SI/HI. Pt remains compliant with the treatment plan. No PRNs were given during my shift. MRSA swab sent to the lab.V/S remain WNL. RR=16, even and unlabored, lungs clear upon auscultation, abdomen soft and non- distended. Pt denies nausea, vomiting and diarrhea. LAST CIWA= 3 at 0400 , INTAKE=1,660 ml, voided x2 , slept 4 hours. Safety measures in place : bed on lowest position with side rails x2 up for safety, call light within reach. Will continue to monitor closely and offer help
--- NOTE | 2017-04-25 07:00 | NUR ---
Start of Shift Notes: Received patient in her room. Alert and oriented x 4. Verbally responsive. Able to make needs known. Respirations even and unlabored. No SOB noted. Skin warm and dry to touch. Skin is intact. Abdomen soft and non-distended. BS (+) in all 4 quadrants. No complains of N/V/D or constipation noted. No complains of abdominal discomfort noted. Voids independently. Ambulatory ad jakob with steady gait. Patient is a 26 year old female admitted for ETOH dependence who was placed on PRNs at this time. Has past medical hx of anxiety. NKA. FULL CODE. Regular diet. On fall and seizure precaution. Educated patient on her current plan of care for the day and her medication regimen. On fall and seizure precaution. Encouraged oral fluid intake and encouraged group participation to learn new skills to prevent relapse. Will continue to monitor closely.
[2017-04-25 08:00] VITALS: BP 110/74
[2017-04-25 08:09] LABS: CREATININE 0.8 mg/dL (0.6-1.3); MAGNESIUM 1.7 mg/dL (1.8-2.4); POTASSIUM 3.6 mmol/L (3.5-5.1)
[2017-04-25] MEDS: MULTIVITAMINS,THERAPEUTIC TABLET PO SCH (08:36)
[2017-04-25] MEDS: THIAMINE HCL 100 MG TABLET PO SCH (08:36)
[2017-04-25] MEDS: CHOLECALCIFEROL 1,000 UNIT TABLET PO SCH (08:36)
[2017-04-25] MEDS: FOLIC ACID 1 MG TABLET PO SCH (08:36)
--- NOTE | 2017-04-25 08:36 | NUR ---
Ativan 1 mg PO given: CIWA 5 patient noted with moderate anxiety, agitation and sweats. Pulse 9. Ativan 1 mg PO PRN given per CIWA score. Will monitor for effectiveness.
--- NOTE | 2017-04-25 08:40 | NUR ---
TB test not administered: Patient refused TB test injection. New order for chest x ray obtained for medical clearance for active TB. Orders noted and carried out.
[2017-04-25] MEDS ORDERED: TUBERCULIN,PURIF.PROT.DERIV. 5 TU/0.1 ML TEST ID ONE (09:00)
[2017-04-25] MEDS ORDERED: MAGNESIUM OXIDE 400 MG TABLET PO ONE (09:15)
--- NOTE | 2017-04-25 09:36 | NUR ---
Re-assessment: Ativan 1 mg PO was effective in reducing patient's withdrawal symptoms. CIWA 2.
[2017-04-25 12:00] VITALS: BP 112/61
[2017-04-25] MEDS: LORAZEPAM 1 MG TABLET PO SCH ×3 (12:18→21:23)
--- NOTE | 2017-04-25 12:27 | NUR ---
Modified 3-day Ativan taper initiated: Started modified 3-day Ativan taper at this time per MD.
[2017-04-25 16:00] VITALS: BP 111/73
--- NOTE | 2017-04-25 18:31 | NUR ---
End of Shift Notes: Patient is a 26 year old male admitted for ETOh dependence who was placed on a modified 2 day Ativan taper as ordered. No adverse reactions noted. Taper initiated today. No delayed reactions noted. Prior to admission, patient was using 750cc of alcohol for the past 5 days. VS monitored closely. No significant abnormalities noted. Patients withdrawal symptoms were closely monitored. Initial CIWA 5, patient presented with anxiety, agitation, and sweats. Last CIWA 3. Needs encouragement to participate in group and activities. Tends to self isolate. PRN Ativan 1 mg PO was given at 0836 for CIWA 5 with help after 1 hour. All needs met and attended. Seen by Dr. Rene (psych) with new orders for Trazodone. Will continue to monitor closely.
--- NOTE | 2017-04-25 19:15 | NUR ---
START OF SHIFT NOTE : Patient is a 26 year old female admitted for ETOH dependence. Patient is AOX4. Pt . placed on modified 2 days taper, started on 04/25/2017. Pt remains compliant with the treatment plan. Patient encouraged adequate PO fluid intake as tolerated. Patient is presenting with anxiety. Patient encouraged to attend group therapies/sessions to learn new coping skills to prevent relapse, patient denies SI/HI. Safety measures in place : bed on lowest position with side rails x2 up for safety, call light within reach. Will continue to monitor closely and offer help
[2017-04-25 20:00] VITALS: BP 107/77
[2017-04-25] MEDS: TRAZODONE 100 MG TABLET PO PRN (21:23)
--- NOTE | 2017-04-25 22:00 | NUR ---
PRN TRAZODONE Pt. complains of sleeplessness. PRN TRAZODONE given as ordered. Safety measures in place : bed on lowest position with side rails x2 up for safety, call light within reach. Will continue to monitor closely and offer help
--- NOTE | 2017-04-25 23:00 | NUR ---
REASSESSMENT TRAZODONE Pt. is sleeping, RR=16, unlabored and even. Safety measures in place : bed on lowest position with side rails x2 up for safety, call light within reach. Will continue to monitor closely and offer help
--- NOTE | 2017-04-26 02:00 | NUR ---
PRN BENADRYL Pt. complains of sleeplessness. PRN BENADRYL given as ordered. Safety measures in place : bed on lowest position with side rails x2 up for safety, call light within reach. Will continue to monitor closely and offer help
[2017-04-26] MEDS: diphenhydrAMINE 50 MG CAPSULE PO PRN (02:59)
--- NOTE | 2017-04-26 03:00 | NUR ---
REASSESSMENT RIVAS Pt. is sleeping, RR=16, unlabored and even. Safety measures in place : bed on lowest position with side rails x2 up for safety, call light within reach. Will continue to monitor closely and offer help
--- NOTE | 2017-04-26 06:47 | NUR ---
END OF SHIFT NOTE : Patient is a 26 year old female admitted for ETOH dependence. Patient is AOX4. Pt . placed on modified 2 days taper, started on 04/25/2017. Pt remains compliant with the treatment plan. Patient encouraged adequate PO fluid intake as tolerated. Patient is presenting with anxiety. Patient encouraged to attend group therapies/sessions to learn new coping skills to prevent relapse, patient denies SI/HI. Pt remains compliant with the treatment plan. No PRNs were given during my shift. V/S remain WNL. RR=16, even and unlabored, lungs clear upon auscultation, abdomen soft and non- distended. Pt denies nausea, vomiting and diarrhea. LAST CIWA=3 at 0400 , INTAKE= 591 ml, voided x2 , slept 6 hours. Safety measures in place : bed on lowest position with side rails x2 up for safety, call light within reach. Will continue to monitor closely and offer help
--- NOTE | 2017-04-26 07:54 | NUR ---
START OF SHIFT NOTE Received report from night nurse, 26 year old female admitted for ETOH dependence. Pt placed on modified 2 days taper. Pt reported PMH of Anxiety. Pt received PRN'S medications effective per night nurse, last CIWA3, slept for 6 hours. Upon assessment pt is alert awake oriented x4 in stable condition. Pt stated she feels so tired and wanted to rest at this time. Educated regarding plan of care for the day and medication regimen with good verbal understanding. Safety measures in place. Will cont to monitor.
[2017-04-26 08:00] VITALS: BP 98/67
[2017-04-26] MEDS: THIAMINE HCL 100 MG TABLET PO SCH (08:34)
[2017-04-26] MEDS: MULTIVITAMINS,THERAPEUTIC TABLET PO SCH (08:35)
[2017-04-26] MEDS: FOLIC ACID 1 MG TABLET PO SCH (08:35)
[2017-04-26] MEDS: CHOLECALCIFEROL 1,000 UNIT TABLET PO SCH (08:35)
[2017-04-26] MEDS ORDERED: LORAZEPAM 1 MG TABLET PO SCH (09:00)
[2017-04-26] MEDS ORDERED: CLON0.1T14 PO (11:28)
[2017-04-26] MEDS ORDERED: HYDR-3895 PO (11:28)
[2017-04-26 12:00] VITALS: BP 109/69
[2017-04-26 13:38] LABS: *AMPHETAMINE, URINE NEGATIVE (NEGATIVE); *BARBITURATE, URINE NEGATIVE (NEGATIVE); *CANNABINOID, URINE NEGATIVE (NEGATIVE); *COCCAINE, URINE NEGATIVE (NEGATIVE); *OPIATE, URINE NEGATIVE (NEGATIVE); *PHENCYCLIDINE SCREEN,URINE NEGATIVE (NEGATIVE)
[2017-04-26 16:00] VITALS: BP 132/66
--- NOTE | 2017-04-26 18:50 | NUR ---
END OF SHIFT NOTE Endorsed Pt to wireless operator nurse. Patient is AOX4. Patient is a 26 year old female admitted for ETOH dependence. Pt completed her Ativan taper. Pt remains compliant with the treatment plan. Patient encouraged adequate PO fluid intake as tolerated. During shift pt did not receive any PRN. Pt scheduled for discharge in AM. Urine drug screen completed. Last CIWA-2. Patient encouraged to attend group therapies/sessions to learn new coping skills to prevent relapse, patient denies SI/HI. Safety measures in place. Call light kept within reach. Patient endorsed to wireless operator nurse in stable condition.
--- NOTE | 2017-04-26 19:15 | NUR ---
START OF SHIFT Received 27 year old female patient admitted on 04/23/17 for ETOH dependency. Pt is full code with NKA. She reports a PMHx of anxidety. She reports using ETOH (vodka) 750 mL daily for 5 days. Last dose was 750 mL on 04/23/17. She was placed on a modified 3 day Ativan taper and tolerated well. She is scheduled to be DC tomorrow. Per endorsement, pt did receive any PRN medications. Pt is alert and oriented x4, breathing is even and unlabored. Safety measures in place. Will continue to monitor.
[2017-04-26 20:00] VITALS: BP 110/71
[2017-04-27] VITALS: BP 110/71
[2017-04-27] MEDS: TRAZODONE 100 MG TABLET PO PRN (00:05)
--- NOTE | 2017-04-27 00:05 | NUR ---
PRN TRAZODONE Pt complains of inability to sleep. PRN Trazodone administered as ordered. Breathing even and unlabored, safety measures in place. Will monitor.
--- NOTE | 2017-04-27 01:05 | NUR ---
PRN TRAZODONE REASSESSMENT PRN Trazodone ineffective. Pt unable to fall asleep. Will continue to monitor.
[2017-04-27] MEDS: diphenhydrAMINE 50 MG CAPSULE PO PRN (01:41)
--- NOTE | 2017-04-27 01:41 | NUR ---
PRN BENADRYL Pt still unable to fall asleep after administration of Trazodone. PRN Benadryl administered as ordered. Safety measures in place. Will monitor effectiveness.
--- NOTE | 2017-04-27 02:41 | NUR ---
PRN BENADRYL REASSESSMENT PRN medication effective. Pt lying in bed with eyes closed noted to be asleep. Respirations 16, breathing even and unlabored. Safety measures in place. Will continue to monitor.
--- NOTE | 2017-04-27 04:00 | NUR ---
VITALS REFUSED/CIWA DEFERRED 0 vitals refused. CIWA deferred d/t pt lying in bed with eyes closed noted to be asleep. Respirations 16, breathing is even and unlabored. Safety measures in place. Will monitor. Addendum: 04/27/17 at 0426 by LORRI LAWSON RN Amended: Links added.
--- NOTE | 2017-04-27 07:13 | NUR ---
END OF SHIFT Pt is a 26 year old female patient admitted on 04/23/17 for ETOH dependency. Pt is full code with NKA. She reports a PMHx of anxidety. She completed her modified 3 day Ativan taper and tolerated well. She is scheduled to be DC today 04/27/17. At 0005 she received PRN Trazodone. Trazodone was not effective. At 0141 she received PRN Benadryl. She slept a total of 5 hrs, Intake: 1138, Void: x3, BM: x2, CIWA: 1. Pt remains alert and oriented x4, breathing is even and unlabored. Safety measures in place. Endorsed to oncoming shift.
--- NOTE | 2017-04-27 07:14 | NUR ---
Start of Shift Notes: Received patient in her room. Alert and oriented x 4. Verbally responsive. Able to make needs known. Respirations even and unlabored. No SOB noted. Skin warm and dry to touch. Skin is intact. Abdomen soft and non-distended. BS (+) in all 4 quadrants. No complains of N/V/D or constipation noted. No complains of abdominal discomfort noted. Voids independently. Ambulatory ad jakob with steady gait. Patient is a 26 year old female admitted for ETOH dependence who was placed on a modified 2-day Ativan taper. Has past medical hx of anxiety. NKA. FULL CODE. Regular diet. On fall and seizure precaution. Patient will be discharging today. Educated patient on the discharge process. Will continue to monitor closely.
[2017-04-27 08:00] VITALS: BP 97/63
[2017-04-27] MEDS: FOLIC ACID 1 MG TABLET PO SCH (09:22)
[2017-04-27] MEDS: CHOLECALCIFEROL 1,000 UNIT TABLET PO SCH (09:22)
[2017-04-27] MEDS: MULTIVITAMINS,THERAPEUTIC TABLET PO SCH (09:22)
[2017-04-27] MEDS: THIAMINE HCL 100 MG TABLET PO SCH (09:22)
--- NOTE | 2017-04-27 09:30 | NUR ---
Discharge Instructions: Educated patient on her discharge procedures and instructions. Patient verbalized good understanding of all teachings. Discharge instructions, prescriptions, UDS and CXR were placed inside the patient's blue duffel bag. No s/s of withdrawal noted. VS stable. Awaiting for patient to be picked up.
--- NOTE | 2017-04-27 09:54 | NUR ---
Discharged: Patient left the unit at this time in stable condition. No s/s of withdrawal noted. Patient was escorted off the unit with all her belongings. VS stable.
== END 2017-04-27 09:54 | disposition home or self-care (01) | DRG 895 ==
LOC: SRC 23:05
PROVIDERS: ADMIT Internal Medicine; ATTEND Internal Medicine
PROC: HZ2ZZZZ Detoxification Services for Substance Abuse Treatment (ICD-10-PCS; principal; 2017-04-23)
PROC: HZ31ZZZ Individual Counseling for Substance Abuse Treatment, Behavioral (ICD-10-PCS; 2017-04-26)
DX: F10.230 Alcohol dependence with withdrawal, uncomplicated (principal); K85.20 Alcohol induced acute pancreatitis without necrosis or infection; F33.1 Major depressive disorder, recurrent, moderate; F10.220 Alcohol dependence with intoxication, uncomplicated; Y90.9 Presence of alcohol in blood, level not specified; Z81.1 Family history of alcohol abuse and dependence; F41.9 Anxiety disorder, unspecified; E55.9 Vitamin D deficiency, unspecified; F17.210 Nicotine dependence, cigarettes, uncomplicated; E83.42 Hypomagnesemia; F14.10 Cocaine abuse, uncomplicated; G43.009 Migraine without aura, not intractable, without status migrainosus; D64.9 Anemia, unspecified
CPT/HCPCS: 36415; 71010; 80307; 80353; 83690; 83735; 84443; 84703; 85025; 86592; 86705; 86803; 87340; 87806; G0480; J3411; Q0163